=== PATIENT | male | born 1985 | race African-American/Black ===

== ENCOUNTER 2018-07-28 15:54 | Emergency (ER) | payer OTHER ==
[2018-07-28 16:02] VITALS: BP 120/73; PULSE 66; TEMP 98.2; BMI 32.8
[2018-07-28] MEDS ORDERED: SODIUM CHLORIDE 1,000 ML IV STA (16:12)
--- NOTE | 2018-07-28 16:15 | PDOC ---
History of Present Illness - General Chief Complaint: Vomiting/Diarrhea Stated Complaint: COLD SYMPTOMS Time Seen by Provider: 07/28/18 16:14 History Source: Patient - History of Present Illness Initial Comments: 07/28/18 16:19 The patient is a 32 year old male with a PMH of HIV (VL undetectable, CD4 600) and HTN presents to our ED c/o 2 day h/o vomiting and diarrhea. Patient states the diarrhea started Sunday evening shortly after he returned from an evening of drinking alcohol with friends. States he has had 10+ watery non-bloody bowel movements daily since that time. Patient estimates her drank 1-1/2 bottles of whiskey. Patient started vomiting yesterday in the middle of the night, NBNB. Last PO intake was on Sunday. Denies any associated abdominal pain/cramping, fevers/chills, dysuria/hematuria. Notes he has not taken his HIV medication, Trimeq, for one week as he ran out of his prescription and had trouble reaching his doctor for a refill. Patient denies chest pain, shortness of breath, headache, cough, sore throat, numbness/tingling. As per EMR, patient has never been evaluated in our ED on prior occasion. NKDA Surgical: anal polyp resection Social: daily marijuana, 1 ppd, ID: Dr. Crystal ([place]) Past History - Past Medical History Allergies/Adverse Reactions: Allergies Allergy/AdvReac Type Severity Reaction Status Date / Time No Known Allergies Allergy Verified 07/28/18 16:02 Home Medications: Ambulatory Orders Ciprofloxacin [Cipro -] 500 mg PO BID #14 tablet 07/28/18 Ondansetron HCl [Zofran] 4 mg PO BID PRN #8 tablet 07/28/18 metroNIDAZOLE [Metronidazole] 500 mg PO BID #14 tablet 07/28/18 COPD: No HTN: Yes - Suicide/Smoking/Psychosocial Hx Smoking History: Current every day smoker Number of Cigarettes Smoked Daily: 20 Information on smoking cessation initiated: No Review of Systems - Review of Systems Constitutional: No: Chills, Fever HEENTM: No: Blurred Vision, Double Vision Respiratory: No: Cough, Shortness of Breath Cardiac (ROS): No: Chest Pain, Lightheadedness, Palpitations, Syncope ABD/GI: Yes: Constipated, Diarrhea, Nausea, Vomiting : No: Burning, Dysuria *Physical Exam - Vital Signs Last Vital Signs Temp Pulse Resp BP Pulse Ox 98.2 F 66 20 120/73 98 07/28/18 15:59 07/28/18 15:59 07/28/18 15:59 07/28/18 15:59 07/28/18 15:59 - Physical Exam General Appearance: Yes: Nourished, Appropriately Dressed, Obese HEENT: positive: Normal Voice, Hearing Grossly Normal Neck: positive: Trachea midline, Supple Respiratory/Chest: positive: Lungs Clear, Normal Breath Sounds. negative: Labored Respiration, Rapid RR, Wheezing Cardiovascular: positive: S1, S2. negative: Edema, JVD, Murmur Gastrointestinal/Abdominal: positive: Soft, Other (hyperactive BS in all 4 quadrants). negative: Distended, Guarding, Rebound, Tenderness, Hernia, Mass Musculoskeletal: negative: CVA Tenderness (R), CVA Tenderness (L) Extremity: positive: Normal Capillary Refill, Normal Inspection Integumentary: positive: Normal Color, Dry, Warm Neurologic: positive: Fully Oriented, Alert ED Treatment Course - LABORATORY CBC & Chemistry Diagram: 07/28/18 16:30 07/28/18 16:30 Medical Decision Making - Medical Decision Making 07/28/18 16:38 32 year old male with vomiting and diarrhea. H/o excessive alcohol consumption. VS unremarkable. Abdomen soft, non-tender, hyperactive BS on PE. Frontal diagnosis: gastroenteritis 2/2 to excessive alcohol consumption, acute pancreatitis, colitis. Less likely aortic pathology given patient's lack of abdominal pain, normal VS. Will obtain Basic Labs, Lipase, Lactic Acid + IV fluid. Reassess. 07/28/18 16:55 Leukocytosis 15.4 VSS 07/28/18 17:13 Cr 3.0 (no previous Cr in EMR) - patient currently receiving IV hydration Lactic Acid, Lipase negative 07/28/18 17:27 Patient reassessed @ bedside, notes h/o "kidney problems" Symptomatically improved, denies any current nausea/vomiting. Will discharge home with strong return precautions, follow-up with PMD and HIV doctor. Clinical Impression: Colitis I discussed the physical exam findings, ancillary test results and final diagnoses with the patient. I answered all of the patient's questions. The patient was satisfied with the care received and felt comfortable with the discharge plan and treatment plan. The patient will return to the Emergency Department with any new, persistent or worsening symptoms. *DC/Admit/Observation/Transfer Diagnosis at time of Disposition: Vomiting, Nausea, Diarrhea - Discharge Dispostion Disposition: HOME Condition at time of disposition: Good Decision to Admit order: No - Prescriptions Prescriptions: Ciprofloxacin [Cipro -] 500 mg PO BID #14 tablet metroNIDAZOLE [Metronidazole] 500 mg PO BID #14 tablet Ondansetron HCl [Zofran] 4 mg PO BID PRN #8 tablet PRN Reason: Nausea - Referrals - Patient Instructions Printed Discharge Instructions: DI for Vomiting -- Adult, DI for Colitis Additional Instructions: We have sent prescriptions to your pharmacy. Please complete the entire antibiotic course. You may find taking the antibiotics with food easier on your stomach. Drink plenty of water and for the next few days eat soft bland food including bread, applesauce, soup. Please make an appointment for evaluation with your primary care doctor in the next 3 days both to be evaluated and to restart your HIV medications. If you start to experience increased vomiting or abdominal pain or any new/ worsening/concerning symptoms, please return to the Emergency Department immediately as you may need a CT scan of you abdomen for further evaluation. - Post Discharge Activity
[2018-07-28 16:39] LABS: BASO % 0.3 % (0-2.0); EOS % 1.3 % (0-4.5); HEMATOCRIT 46.6 % (35.4-49); HEMOGLOBIN 15.9 GM/dL (11.7-16.9); MCH 31.2 pg (25.7-33.7); MCHC 34.2 g/dl (32.0-35.9); MEAN CELL VOLUME 91.4 fl (80-96); MEAN PLT VOLUME 6.8 fl (7.5-11.1); MONO % 8.5 % (3.8-10.2); NEUT % 64.9 % (42.8-82.8); PLATELET COUNT 323 K/MM3 (134-434); WHITE BLOOD COUNT 15.4 K/mm3 (4.0-10.0)
[2018-07-28 17:01] LABS: ALBUMIN 4.1 g/dl (3.4-5.0); ALK PHOS 75 U/L (45-117); ANION GAP 11 MMOL/L (8-16); BILIRUBIN,TOTAL 0.7 mg/dL (0.2-1); BLOOD UREA NITROGEN 17 mg/dL (7-18); CALCIUM 8.7 mg/dL (8.5-10.1); CHLORIDE 109 mmol/L (98-107); CO2 17 mmol/L (21-32); GLUCOSE,RANDOM 109 mg/dL (74-106); LIPASE 47 U/L (73-393); POTASSIUM 3.7 mmol/L (3.5-5.1); SGOT/AST 17 U/L (15-37); SGPT/ALT 34 U/L (13-61); SODIUM 138 mmol/L (136-145); TOT PROT 8.2 g/dl (6.4-8.2)
--- NOTE | 2018-07-28 17:14 | PDOC ---
Attending Attestation - Resident Resident Name: MarlenStormy - ED Attending Attestation I have performed the following: I have examined & evaluated the patient, The case was reviewed & discussed with the resident, I agree w/resident's findings & plan - HPI HPI: 07/28/18 17:13 32 year old male with a PMH of HIV (VL undetectable, CD4 600) and HTN presents to our ED c/o NBNB vomiting and diarrhea x 2 days, +abdominal cramping, +ETOH over the weekend with friends and also eating [employer] burger and fries on Sunday. Patient estimates her drank 1-1/2 bottles of whiskey that night.. no f /c, urinary sx, respiratory sx. 07/28/18 17:30 - Physicial Exam PE: 07/28/18 17:30 NAD, well appearing, PERRL, EOMI, MMM, nl conjunctiva, anicteric; neck supple. lungs clear, RRR, abdomen soft nontender. no CVAT. ARTEAGA x4, no focal neuro deficits. No peripheral edema. normal color for ethnicity, WWP. - Medical Decision Making 07/28/18 17:31 32 YOM with controlled HIV, HTN presenting with n/v/d x 2 days, +suspicious food intake and ETOH use at constitution party. Vital signs reviewed, wnl. no fever. laboratory results and imaging reviewed, basic labs and lytes wnl, notable for elevated Cr (3), unknown prior but pt made aware he has CKD with elevated Cr. Leukocytosis noted, but has precipitating factors and n/v/d, fitting with gastroenteritis vs colitis. normal lipase and LFTs, so unlikely biliary or hepatitis or pancreatitis. lactic also normal, less likely ischemic or severe/ septic ED course: no acute events, remained stable and well appearing. given pepcid, IVF, with clinical improvement. abdomen soft and benign, non peritoneal to suggest intra abdominal pathology. pt declined CT, shared decision making with patient, which is appropriate. strict return precautions discussed. will give x10 day course of cipro/flagyl for empiric coverage of GI infection, as he has had colitis and Giardia previously diet modifications, [place] diet and bowel rest advised. avoid binge drinking and food precipitants. Dispo: Pt to be discharged in stable condition. Patient and family made aware of impression and plan, return precautions discussed (including but not limited to worsening pain or symptoms), fevers, or signs of infection, focal AP (such as RLQ), chest pain, respiratory distress, inability to tolerate oral intake, dehydration, syncope, or neurologic changes). Follow up with PMD and/or specialist as recommended, follow up information provided, take medications as instructed for duration of time. continue with supportive care, avoid triggers and precipitants. All questions answered to patient's satisfaction and expressed understanding and comfort with this. 07/28/18 17:31 07/28/18 18:04
[2018-07-28] MEDS ORDERED: CIPROFLOXACIN 500 MG TABLET (RESTRICTED TO ID) PO ONE (17:26)
[2018-07-28] MEDS ORDERED: FAMOTIDINE 20 MG/50 ML IVPB 20 MG/50 ML MG IVPB ONE ×2 (17:27→17:39)
[2018-07-28] MEDS ORDERED: metroNIDAZOLE 500 MG TABLET PO ONE (17:27)
[2018-07-28] MEDS ORDERED: metroNIDAZOLE 250 MG TABLET ONE (17:39)
== END 2018-07-28 18:04 | disposition home or self-care (01) ==
LOC: JER 15:54
PROC: 3E0337Z Introduction of Electrolytic and Water Balance Substance into Peripheral Vein, Percutaneous Approach (ICD-10-PCS; principal; 2018-07-28)
PROC: 3E033GC Introduction of Other Therapeutic Substance into Peripheral Vein, Percutaneous Approach (ICD-10-PCS; 2018-07-28)
DX: K52.9 Noninfective gastroenteritis and colitis, unspecified (principal); I10 Essential (primary) hypertension; Z21 Asymptomatic human immunodeficiency virus [HIV] infection status
CPT/HCPCS: 36415; 80053; 83605; 83690; 85025; 99282-25; J7030